=== PATIENT | male | born 1990 | race Caucasian/White ===

== ENCOUNTER 2018-10-22 09:23 | Emergency (ER) | payer OTHER ==
[2018-10-22 09:38] VITALS: BP 105/65; PULSE 62; TEMP 98.3; BMI 23.1
--- NOTE | 2018-10-22 10:45 | PDOC ---
History of Present Illness - General Chief Complaint: Pain Stated Complaint: INTERMITTENT LEFT ARM NUMBNESS, ELBOW PAIN Time Seen by Provider: 10/22/18 10:15 History Source: Patient Exam Limitations: No Limitations - History of Present Illness Initial Comments: 10/22/18 10:41 had intermittent numbness and tingling to his left arm for the past month, states when he sleeps on his right side has numbness to his right hand. 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 no HX OF neck or back injury. Patric taken only Aleve for some relief Received massage last week that worsened 10/22/18 14:37 Occurred: reports: other (1 month) Severity: reports: moderate Pain Location: reports: chest, neck Method of Injury: Yes: unknown Modifying Factors: improves with: None Associated Symptoms (Fall): denies symptoms, neck pain Past History - Travel Traveled outside of the country in the last 30 days: No Close contact w/someone who was outside of country & ill: No - Past Medical History Allergies/Adverse Reactions: Allergies Allergy/AdvReac Type Severity Reaction Status Date / Time No Known Allergies Allergy Verified 10/22/18 09:38 Home Medications: Ambulatory Orders Cyclobenzaprine HCl 10 mg PO Q8H PRN #14 tablet 10/22/18 Naproxen [Naprosyn -] 500 mg PO BID #30 tablet 10/22/18 COPD: No - Suicide/Smoking/Psychosocial Hx Smoking History: Current every day smoker Number of Cigarettes Smoked Daily: 10 Information on smoking cessation initiated: Yes Hx Alcohol Use: No Drug/Substance Use Hx: No Review of Systems - Review of Systems Able to Perform ROS?: Yes Is the patient limited Upper Sorbian proficient: Yes Constitutional: Yes: Symptoms Reported, See HPI HEENTM: Yes: See HPI. No: Symptoms Reported Respiratory: Yes: See HPI. No: Symptoms reported, Cough Musculoskeletal: Yes: Symptoms Reported, See HPI, Joint Pain, Muscle Pain, Neck Pain Integumentary: Yes: See HPI. No: Symptoms Reported, Bruising, Pruritus, Rash Neurological: Yes: Symptoms reported, See HPI, Numbness, Paresthesia (to hands , worse on left than right/ intermittant), Tingling All Other Systems: Reviewed and Negative *Physical Exam - Vital Signs Last Vital Signs Temp Pulse Resp BP Pulse Ox 98.3 F 62 18 105/65 100 10/22/18 09:36 10/22/18 09:36 10/22/18 09:36 10/22/18 09:36 10/22/18 09:36 - Physical Exam General Appearance: Yes: Nourished, Appropriately Dressed, Apparent Distress, Mild Distress HEENT: positive: LATRICIA, Normal ENT Inspection, TMs Normal Neck: positive: Tender (no cervical spine tenderness, however has palpable spasm and point tenderness with reproduced left arm and right arm pain with deep palpation to triggerpoints and distal insertion of sternocleidomastoid), Supple. negative: Lymphadenopathy (R), Lymphadenopathy (L) Respiratory/Chest: positive: Lungs Clear Gastrointestinal/Abdominal: positive: Normal Bowel Sounds, Soft. 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 Spasm, will treat with NSAIDs and cyclobenzaprine *DC/Admit/Observation/Transfer Diagnosis at time of Disposition: Cervical muscle strain Qualifiers: Encounter type: initial encounter Qualified Code(s): S16.1XXA - Strain of muscle, fascia and tendon at neck level, initial encounter - Discharge Dispostion Disposition: HOME Condition at time of disposition: Stable Decision to Admit order: No - Prescriptions Prescriptions: Cyclobenzaprine HCl 10 mg PO Q8H PRN #14 tablet PRN Reason: spasm Naproxen [Naprosyn -] 500 mg PO BID #30 tablet - Referrals Referrals: David Kellogg MD [Staff Physician] - - Patient Instructions Printed Discharge Instructions: DI for Cervical Muscle Strain Additional Instructions: Rest, no heavy lifting or exercise until pain is resolved Hot soaks to neck and low back as often as possible/hot showers or Jacuzzis No massage or therapy until spasm is gone Continue Naprosyn 500 mg tablet, 1 tablet every 8 hours for the next 3 days then as needed for pain and swelling Cyclobenzaprine 1-10mg every 8 hours as needed for spasm If not significant improvement within 24 hours with medication and rest regime, followup with private physician for change in medications and /or therapy. - Post Discharge Activity Forms/Work/School Notes: Back to Work
--- NOTE | 2018-10-23 15:50 | EKG ---
Test Reason : Blood Pressure : / mmHG Vent. Rate : 060 BPM Atrial Rate : 060 BPM P-R Int : 110 ms QRS Dur : 084 ms QT Int : 396 ms P-R-T Axes : 046 -13 021 degrees QTc Int : 396 ms POOR DATA QUALITY, INTERPRETATION MAY BE ADVERSELY AFFECTED SINUS RHYTHM WITH SINUS ARRHYTHMIA WITH SHORT HI OTHERWISE NORMAL ECG NO PREVIOUS ECGS AVAILABLE Confirmed by SHADI SNOW, MELODY ([id number]) on 10/23/2018 3:49:52 PM Referred By: Confirmed By:MELODY HSU MD
== END 2018-10-22 11:46 | disposition home or self-care (01) ==
LOC: JERFT 09:23
DX: S16.1XXA Strain of muscle, fascia and tendon at neck level, initial encounter (principal); X58.XXXA Exposure to other specified factors, initial encounter; Y92.9 Unspecified place or not applicable; Y93.9 Activity, unspecified; F17.210 Nicotine dependence, cigarettes, uncomplicated
CPT/HCPCS: 72050-TC-FY; 93005; 93010; 99281-25